=== PATIENT | female | born 1995 | race Hispanic/Latino ===

== ENCOUNTER 2023-11-25 18:07 | Emergency (ER) | payer OTHER, MEDICARE, SELFPAY ==
[2023-11-25 18:11] VITALS: BP 125/85
--- NOTE | 2023-11-25 18:50 | ED.GENMED ---
History of Present Illness
General
Chief Complaint: Back Pain
Source: patient
Exam Limitations: none
Time Seen by Provider: 11/25/23 18:25
History of Present Illness
History of Present Illness:
This is a 28 year old female that comes in with mid/low back pain. States that this started on and the pain comes around under the ribs to the abd. States that it is like an electircal shock to the lower back and down the right leg. States
that today it also involves the left arm. States that she has pelvic floor dysfunction and has chronic vomiting, nausea and diarrhea. States that she is breaking out in a sweat, has a headache. Denies any fever, chills, chest pain, SOB, dizziness,
urinary burning.
Past History
Past History
ED Past Medical History: Asthma, NIDDM, Psychiatric (Depression with previous hospitalizations, overdoses, et cetera.) and Other (Sarcoidosis, colitis, narcolepsy, ,Migraines, Nerve pain, IBS, Pelvic floor disfunction, gastroporesis)
ED Past Surgical History: Gynecological (Laparoscopy March 2016, rect/vaginal exploratory surgery)
Social History
Tobacco: Non-smoker
Alcohol: Occasional
Drug: None
Personal:
Living: with family
Employment: Not employed
Family History
Family History: CAD and Other
Review of Systems
Review of Systems
All Other Systems: ROS reviewed and negative except as documented in HPI and ROS
Constitutional: Reports other (Sweats); Denies fever or chills
EENT: Reports no symptoms
Respiratory: Reports no symptoms; Denies cough or trouble breathing
Cardiac: Reports no symptoms; Denies chest pain
ABD/GI: Reports nausea, vomiting and diarrhea; Denies abdominal pain
: Reports no symptoms; Denies dysuria, frequency or urgency
Musculoskeletal: Reports back pain (around to the abd and into the right leg, Left arm tingling)
Skin: Reports no symptoms
Neurological: Reports headache; Denies dizzy
Psychiatric: Reports no symptoms
Phy Exam
General Physical Exam
General Presentation: well appearing and no apparent distress
General age: appears stated age
General Skin: warm and dry
General Habitus: normal
General Mental: alert
General Hydration: appears well hydrated
ENT Exam
ENT Exam: TM's normal, pharynx normal and neck supple
Eye Exam
Eye Exam: EOMI
Cardiovascular Exam
Cardiovascular Exam: regular rate/rhythm, no edema, no murmur and normal peripheral pulses
Pulmonary Exam
Pulmonary Exam: lungs clear, no respiratory distress, no rales, chest non tender, no crackles, no rhonchi, no wheezing and no cough
Gastrointestinal Exam
Gastrointestinal Exam: non tender, soft, no organomegaly, no pulsatile mass, non distended and other (Hypoactive bowel sounds)
Musculoskeletal Exam
Musculoskeletal Exam: full ROM, no edema and other (Negative discomfort with straight leg raise, turning side to side, going up on her toes and bending forward. Sensational change mid back with palpation down spine. )
Skin Exam
Skin Exam: normal color, warm/dry, no rash and no petechia
Psychiatric Exam
Psychiatric Exam: normal mood/affect
Course
Orders/Labs/Results
Orders:
Orders
11/25/23 18:48
CT Lumbar Spine W/ Iv Contrast Urgent
Comment:
Reason For Exam: Mid to low back pain. tingling to abd and leg
Test Result ONCE
11/25/23 18:49
0.9% Sodium Chloride 1000 ml [Nss] 1,000 ml IV BOLUS
Dexamethasone Sod Phosphate [Decadron] 20 mg IV NOW STA
Ondansetron Injectable [Zofran] 4 mg IV NOW STA
11/25/23 19:12
CRP [C-Reactive Protein] Urgent
Complete Blood Count/With Diff Urgent
Comprehensive Metabolic Panel Urgent
HCG, Serum Qualitative Screen Urgent
Sed Rate [Erythrocyte Sed Rate] Urgent
Urinalysis Reflex To Culture Urgent
Date Specimen was Collected: 11/25/23
Time Specimen was Collected: 19:07
Abnormal Lab Results
11/25/23
19:12
RBC 3.91 L 10^6/uL
(4.20-5.40)
Hgb 11.4 L g/dL
(12.0-16.0)
Hct 33.2 L %
(37.0-47.0)
MPV 10.6 H fL
(7.4-10.4)
BUN 21 H mg/dl
(7-17)
Glucose 106 H mg/dl
(70-99)
11/25/23 19:12
11/25/23 19:12
H/H slighlty low. Dehydration. Glucose nonfasting. Sed rate normal at 18, CRP normal <5.0, HCG negative. Urine negative for infection.
Vital Signs
Initial and Last Documented VS:
Initial Vital Signs
Temp Pulse Resp BP Pulse Ox
98.3 F 104 18 125/85 100
11/25/23 18:11 11/25/23 18:11 11/25/23 18:11 11/25/23 18:11 11/25/23 18:11
Last Documented Vital Signs
Temp Pulse Resp BP Pulse Ox
98.3 F 104 18 109/65 99
11/25/23 18:11 11/25/23 18:11 11/25/23 18:11 11/25/23 19:20 11/25/23 19:20
MDM/Problems Addressed
Differential Diagnosis Includes:
Spinal abscess, Sciatica, chronic nerve pain
MDM/Problems Addressed:
This is a 28 year old female that comes in with c/o pain in the mid to low back. States that this is an electrical shock that goes around her body to the abd and in the right leg. States that today there is this shocking pain in the left arm. States
that she doesn't normally have control of her bladder or bowel due to her Pelvic floor disfunction.
Will check labs, inflammatory markers and CT lumbar spine
back into see patient. Explained that her blood work shows slight Dehydration. Her Inflammatory markers are normal and the Ct is negative for any abscess of fluid collection. There is herniation of the disc. Patient to follow up with the Orthopedic
specialist. Patient to use Tylenol 1000mg every 6 hours for pain and alternate with Ibuprofen 600mg every 6 hours with food for pain. return with any concerns.
Chronic conditions affecting care:
Chronic nerve pain,
Acute Exacerbation and/or Progression of Chronic Illness:
NA
*Radiology
Radiology exam reviewed: radiology read reviewed (CT lumbar spine-Mild central canal stenosis at L3/L4 and L4/L5. Small diffuse disc bulges at L2/L3 and L3/L4 and L4/L5. Small central disc herniations at L4/L5 and L5/S1. Mild right convex curvature
of the midlumbar spine. )
*Pulse Oximetry
Patient hypoxic: no
*EKG
Interpreted by ED Provider?: NA
Rate: EKG- N/A
*Podiatric Medicine Doctor Interpretation
Rate: Podiatric Medicine Doctor- N/A
*Critical Care Note
Total Time (30-74mins, 75-104mins- exclusive of procedures): Not Applicable
ED Attending Note
-
Portions of this chart may have been created with voice recognition software.� Occasional wrong word or��sound alike� substitutions may have occurred due to the inherent limitations of voice recognition software.
Discharge Plan
Departure
Patient Disposition: Home (Routine Discharge)
Date of Disposition: 11/25/23
Time of Disposition: 21:29
Patient with high blood pressure during this ER visit?: No
Condition: Good
Covid-19: Not Applicable
Discharge Problem:
Low back pain, Lumbar herniated disc
Instructions: Low Back Pain (DC), Herniated Disc (DC)
Prescriptions:
No Action
albuterol sulfate 2.5 MG/3 ML solution for nebulization
2.5 mg inhalation R Q4HPRN PRN (Reason: asthma)
albuterol sulfate [ProAir HFA] 8.5 GM HFA aerosol inhaler
1 - 2 puff IH Q4HPRN PRN (Reason: asthma)
multivitamin 1 EACH tablet
1 ea PO DAILY
acetaminophen 325 MG tablet
650 mg PO Q4HPRN PRN (Reason: pain)
ciprofloxacin HCl 500 MG tablet
500 mg PO BID
ibuprofen 600 mg tablet
600 mg PO Q6H PRN (Reason: fever or pain) Qty: 20 0RF
pantoprazole [Protonix] 40 mg tablet,delayed release (DR/EC)
40 mg PO DAILY Qty: 20 0RF
Referrals:
Isak Us MD [Active] - Follow up in 2-3 days
Manolo Mack DO [Family Provider] -
Activity Restrictions/Additional Instructions:
As discussed, your blood work shows slight Dehydration. Your urine is negative for infection and our inflammatory markers are normal. Your urine is negative for infection. Please increase your water intake to 8-8oz glasses daily. Your CT shows that
you have herniated disc in the lumbar spine. You will need to see the marketing operations specialist for further evaluation. You may use Tylenol 1000mg every 6 hours for pain and alternate with Ibuprofen 600mg every 6 hours with food for pain. IF YOU HAVE
ANY OTHER CONCERNS PLEASE RETURN TO THE EMERGENCY ROOM.
Interventions
Interventions:
*Risk Screen - Suicide Last Done: 11/25/23 18:11
*General Assessment Last Done: 11/25/23 18:11
*Neglect/Abuse Screening Last Done: 11/25/23 18:11
ED- Fall Risk Assessment Last Done: 11/25/23 19:25
ED-Musculoskeletal Assessment Last Done: 11/25/23 19:25
Discharge Date and Time
Print Language: [id number]
[2023-11-25] MEDS: DECADRON 20 MG IV (19:15)
[2023-11-25] MEDS: ZOFRAN 4 MG IV (19:15)
[2023-11-25] MEDS: NSS 1000 IV (19:15)
[2023-11-25 19:16] VITALS: BMI 28.3
[2023-11-25 19:20] VITALS: BP 109/65
[2023-11-25 19:30] LABS: % Basophils 0.5 % (0-2); % Eosinophils 1.1 % (0-6); % Immature Granulocytes 0.4 % (0-0.5); % Lymphocytes 32.9 % (20.5-51.1); % Monocytes 5.1 % (1.7-9.3); Absolute Basophils 0.1 10^3/uL (0-0.2); Absolute Eosinophils 0.1 10^3/uL (0-0.7); Absolute Monocytes 0.5 10^3/uL (0.1-0.6); Absolute Neutrophils 5.5 10^3/uL (1.4-6.5); Hematocrit 33.2 % (37.0-47.0); Hemoglobin 11.4 g/dL (12.0-16.0); Mean Corp Hgb Conc. 34.3 g/dL (33.0-37.0); Mean Corpuscular Hgb 29.2 pg (27.0-31.0); Mean Corpuscular Volume 84.9 fL (81.0-99.0); Mean Platelet Volume 10.6 fL (7.4-10.4); Nucleated Red Blood Cells % 0 %; Platelet Count 310 10^3/uL (130-400); Red Blood Cell Count 3.91 10^6/uL (4.20-5.40); Red Cell Dist. Width 12.6 % (11.5-14.5); White Blood Cell Count 9.2 10^3/uL (4.8-10.8)
[2023-11-25 19:31] LABS: Urine Albumin Negative (Neg - Trace); Urine Bilirubin Negative (Negative); Urine Character Clear (Clear); Urine Color Yellow; Urine Glucose Negative (Negative); Urine Ketone Negative (Negative); Urine Leukocyte Negative (Negative); Urine Nitrite Negative (Negative); Urine Occult Blood Negative (Negative); Urine Specific Gravity 1.025 (<1.030); Urine Urobilinogen Negative (Neg - 1+)
[2023-11-25 19:44] LABS: Erythrocyte Sed Rate 18 mm/hour (0-20); HCG, Serum Qualitative Screen Negative
[2023-11-25 19:45] LABS: ALT (SGPT) 30 U/L (0-35); AST (SGOT) 28 U/L (14-36); Albumin 4.3 g/dl (3.5-5.0); Alkaline Phosphatase 78 U/L (38-126); Blood Urea Nitrogen 21 mg/dl (7-17); Calcium 9.4 mg/dl (8.4-10.2); Carbon Dioxide 22 mmol/L (22-30); Chloride 103 mmol/L (98-107); Estimated Creatinine Clearance 96 ml/min; Glucose 106 mg/dl (70-99); Potassium 3.8 mmol/L (3.5-5.1); Sodium 139 mmol/L (135-145); Total Bilirubin 0.4 mg/dl (0.2-1.3); Total Protein 6.9 g/dl (6.3-8.2); eGFR > 60.00
[2023-11-25 19:47] LABS: C-Reactive Protein < 5.00 mg/L (0.0-10.00)
== END 2023-11-25 22:13 | disposition home or self-care (01) ==
LOC: EMR 18:07
PROVIDERS: Clinical Nurse Specialist Family Health; EMERGENCY PHYSICIAN Emergency Medicine; FAMILY PHYSICIAN Family Medicine
DX: M51.26 Other intervertebral disc displacement, lumbar region (principal); M54.50 Low back pain, unspecified; R11.2 Nausea with vomiting, unspecified; R19.7 Diarrhea, unspecified; M79.602 Pain in left arm; R51.9 Headache, unspecified; R20.2 Paresthesia of skin; R07.81 Pleurodynia; M79.604 Pain in right leg; E86.0 Dehydration; M48.061 Spinal stenosis, lumbar region without neurogenic claudication; E11.9 Type 2 diabetes mellitus without complications; J45.909 Unspecified asthma, uncomplicated; F32.A Depression, unspecified; D86.9 Sarcoidosis, unspecified; K52.9 Noninfective gastroenteritis and colitis, unspecified; G47.419 Narcolepsy without cataplexy; K58.9 Irritable bowel syndrome, unspecified; Z91.018 Allergy to other foods
CPT/HCPCS: 99285; 96361; 96374; 96375; 72132; 80053; 81003; 84703; 85025; 85652; 86140; Q9967

== ENCOUNTER → 2023-12-28 13:03 | Outpatient (REF) | payer MEDICARE, OTHER, SELFPAY | LOC: PAVMRI 13:03 | PROVIDERS: ATTENDING PHYSICIAN Physical Medicine & Rehabilitation; FAMILY PHYSICIAN Family Medicine | DX: M41.115 Juvenile idiopathic scoliosis, thoracolumbar region (principal); S13.4XXA Sprain of ligaments of cervical spine, initial encounter; S16.1XXA Strain of muscle, fascia and tendon at neck level, initial encounter; S33.5XXA Sprain of ligaments of lumbar spine, initial encounter | CPT/HCPCS: 72141; 72146; 72148 ==

== ENCOUNTER → 2025-02-24 07:47 | Outpatient (REF) | payer MEDICARE, OTHER, SELFPAY | LOC: RAD 07:47 | PROVIDERS: ATTENDING PHYSICIAN Family Medicine | DX: R10.12 Left upper quadrant pain (principal); K52.9 Noninfective gastroenteritis and colitis, unspecified | CPT/HCPCS: 74177; Q9967 ==